=== PATIENT | male | born 1960 | race African-American/Black ===

== ENCOUNTER 2017-01-08 16:37 | Emergency (ER) | payer MEDICAID ==
[~2017-01-08] VITALS: Ht 172.7 cm; Wt 79.0 kg
[~2017-01-08 16:37] MED LIST: CLOP75TA2 PO; DIPH50LI PO; DIVA500T PO; HYDR-523 PO; LISI-604 PO; QUET200T PO; QUET400T PO; TAMS0.4C31 PO
[2017-01-08 16:48] VITALS: BP 121/80
[2017-01-08] MEDS ORDERED: KETOROLAC 60MG/2ML VIAL IM ONE (18:15)
== END 2017-01-08 19:22 | disposition home or self-care (01) ==
LOC: ER 16:37
DX: S20.212A Contusion of left front wall of thorax, initial encounter (principal); I10 Essential (primary) hypertension; M54.9 Dorsalgia, unspecified; G89.29 Other chronic pain; F17.210 Nicotine dependence, cigarettes, uncomplicated; Z88.0 Allergy status to penicillin; Z79.899 Other long term (current) drug therapy; Z86.73 Personal history of transient ischemic attack (TIA), and cerebral infarction without residual deficits; W01.0XXA Fall on same level from slipping, tripping and stumbling without subsequent striking against object, initial encounter; Y93.89 Activity, other specified; Y92.89 Other specified places as the place of occurrence of the external cause; Y99.8 Other external cause status
CPT/HCPCS: 71020; 96372; 99284; J1885; Z7610

== ENCOUNTER 2022-12-23 17:56 | Emergency (ER) | payer MEDICAID ==
[~2022-12-23] VITALS: Ht 167.6 cm; Wt 68.0 kg
[~2022-12-23 17:56] MED LIST changes: +CLOP75TA15 PO; -CLOP75TA2 PO; +CYAN-33 PO; -DIPH50LI PO; -DIVA500T PO; -HYDR-523 PO; +HYDR25TA PO; -LISI-604 PO; +LISI20TA31 PO; +MULT-1146 PO; -QUET200T PO; -QUET400T PO; -TAMS0.4C31 PO; +TRAZ-251 PO
[2022-12-23 18:14] VITALS: BP 115/74
[2022-12-23 18:53] LABS: BASOPHILS % 0.8 % (0.0-2.0); HEMOGLOBIN. 14.9 g/dL (14.0-18.0); LYMPHOCYTES % 29.4 % (20.0-50.0); MEAN CORPUSCULAR HEMOGLOBIN 27.7 pg (28.0-32.0); MEAN CORPUSCULAR VOLUME 83.6 fL (80.0-94.0); MEAN PLATELET VOLUME 6.9 fl (7.4-10.4); MONOCYTES % 4.9 % (2.0-8.0); NEUTROPHILS % 63.9 % (40.0-76.0); PLATELET 471 x1000/uL (130-400); RED BLOOD CELL COUNT 5.38 mill/uL (4.7-6.1); RED CELL DISTRIBUTION WIDTH 14.1 % (11.6-14.6)
[2022-12-23 19:03] LABS: CHLORIDE 104 mEq/L (98-107)
[2022-12-23] MEDS ORDERED: MAGNESIUM HYDROXIDE 400MG/5ML 30ML UDC PO ONE (22:00)
[2022-12-23] MEDS ORDERED: LACTULOSE 20G/30ML UDC PO ONE (22:00)
[2022-12-23] MEDS ORDERED: MINERAL OIL 30ML BOTTLE PO ONE (22:00)
[2022-12-23] MEDS ORDERED: SENN-178 MT (22:03)
[2022-12-23] MEDS: MAGNESIUM HYDROXIDE 400MG/5ML 30ML UDC PO NR ×2 (23:10→23:22)
== END 2022-12-23 23:00 | disposition home or self-care (01) ==
LOC: ER 17:56
DX: R10.9 Unspecified abdominal pain (principal); I10 Essential (primary) hypertension; Z88.0 Allergy status to penicillin; Z98.890 Other specified postprocedural states; Z86.73 Personal history of transient ischemic attack (TIA), and cerebral infarction without residual deficits
CPT/HCPCS: 36415; 74176; 80053; 85025; 99284